=== PATIENT | male | born 1955 | race Caucasian/White ===

== ENCOUNTER → 2016-10-27 | Outpatient (CLI) | payer OTHER | LOC: FIMAGING 14:48 | PROVIDERS: ATTEND Family Medicine Sports Medicine | DX: M25.552 Pain in left hip (principal); M25.852 Other specified joint disorders, left hip; M76.02 Gluteal tendinitis, left hip; M89.9 Disorder of bone, unspecified; M76.892 Other specified enthesopathies of left lower limb, excluding foot; M51.36 Other intervertebral disc degeneration, lumbar region ==